=== PATIENT | female | born 1945 | race Caucasian/White ===

== ENCOUNTER 2016-11-05 11:23 | Emergency (ER) | payer OTHER, MEDICARE ==
[~2016-11-05] VITALS: Ht 157.5 cm; Wt 73.0 kg
[~2016-11-05 11:23] MED LIST: AMARYL4 MG PO; AVAPRO 150 MG150 M1 PO; GLUCOPHAGE500 MG PO; HYDROCODON-ACE1 EACH PO; LIPITOR20 MG; PERCOCET 7.5-31 EACH PO; PROTONIX40 M2 PO; ZOCOR 20 MG TAB20 M1 PO; [UNRECOGNIZED DRUG - OTHER]
[2016-11-05 12:44] LABS: BASOPHILS 0.5 % (0.0-2.0); EOSINOPHILS 0.3 % (0.0-3.0); HEMATOCRIT 40.1 % (37.0-47.0); HEMOGLOBIN 13.5 gm/dL (12.0-15.0); LYMPHOCYTES 10.1 % (24.0-44.0); MCH 28.1 pg (26.0-34.0); MCHC 33.7 g/dL (28.0-37.0); MCV 83.4 fL (80.0-100.0); MONOCYTES 9.7 % (1.0-8.0); PLATELET COUNT 245 thou/uL (150-400); POLYS 79.4 % (36.0-66.0); RBC 4.81 mil/uL (4.20-5.00); RDW 13.3 % (10.5-14.5); WBC 15.1 thou/uL (4.0-11.0)
[2016-11-05 12:52] LABS: MANUAL DIFF NO
[2016-11-05 12:53] LABS: CALCIUM 9.3 mg/dL (8.5-10.1); CREATININE 0.8 mg/dL (0.6-1.0); POTASSIUM 4.5 mmol/L (3.5-5.1)
[2016-11-05] MEDS ORDERED: DOXYCYCLINE 10100 MG PO (14:20)
[2016-11-05] MEDS ORDERED: HYDROCODONE-AP1 EAC6 PO (14:23)
[2016-11-05] MEDS ORDERED: SENNA8.6 MG PO (14:23)
[2016-11-05] MEDS ORDERED: CRESTOR10 MG PO (14:34)
[2016-11-05] MEDS ORDERED: COZAAR 50 MG TA50 M2 PO (14:34)
[2016-11-05 15:00] VITALS: BP 141/87
== END 2016-11-05 14:40 | disposition home or self-care (01) ==
LOC: ER 11:23
PROVIDERS: Physician Assistant
DX: N76.4 Abscess of vulva (principal); D72.829 Elevated white blood cell count, unspecified; E78.00 Pure hypercholesterolemia, unspecified; E11.9 Type 2 diabetes mellitus without complications; Z98.890 Other specified postprocedural states; Z88.1 Allergy status to other antibiotic agents; Z88.5 Allergy status to narcotic agent